=== PATIENT | male | born 1960 | race Caucasian/White ===

== ENCOUNTER 2018-02-05 08:20 | Day surgery (SDC) | payer OTHER ==
[~2018-02-05] VITALS: Ht 177.8 cm; Wt 102.0 kg
[~2018-02-05 08:20] MED LIST: NAPROSYN500 MG PO; PREDNISONE20 MG PO; ULTRAM50 MG PO; ZITHROMAX250 MG PO
[2018-02-05] MEDS ORDERED: LOSARTAN POTASS50 MG PO (08:53)
[2018-02-05] MEDS ORDERED: SINGULAIR10 MG PO (08:54)
[2018-02-05] MEDS ORDERED: OMEPRAZOLE40 M1 PO (08:54)
[2018-02-05] MEDS ORDERED: ADVAIR HFA120 INHALA IH (08:55)
[2018-02-05] MEDS ORDERED: HYDROCHLOROTH12.5 M3 PO (08:56)
[2018-02-05] MEDS ORDERED: ASPIRIN81 M2 PO (08:57)
== END 2018-02-05 15:23 | disposition home or self-care (01) ==
LOC: CATH 08:20
PROC: B2111ZZ Fluoroscopy of Multiple Coronary Arteries using Low Osmolar Contrast (ICD-10-PCS; principal; 2018-02-05)
PROC: B2151ZZ Fluoroscopy of Left Heart using Low Osmolar Contrast (ICD-10-PCS; principal; 2018-02-05)
PROC: 4A023N7 Measurement of Cardiac Sampling and Pressure, Left Heart, Percutaneous Approach (ICD-10-PCS; principal; 2018-02-05)
DX: I25.10 Atherosclerotic heart disease of native coronary artery without angina pectoris (principal); I10 Essential (primary) hypertension; I77.810 Thoracic aortic ectasia; Z82.41 Family history of sudden cardiac death; Z72.0 Tobacco use
CPT/HCPCS: 93005; C1769; C1887; J1644; J2250; J3010; J7040